=== PATIENT | male | born 1940 | race Caucasian/White ===

== ENCOUNTER 2025-07-03 07:58 | Outpatient (OUT) | payer MEDICARE, OTHER, SELFPAY ==
--- OUTSIDE RECORDS SUMMARY | 2025-07-03 08:05 | XMS_ITS | Encounter Summary ---
Author Organization [facility] Address [address] [place] [address] Phone Care Team Providers Care Talent Sourcing Specialist Name Role Phone Nirmal Johansen MD Primary Care Provider [phone] Reason for Visit * ReasonOnset FkacTluccpvfzqg31/16/2025 Encounter Details DateTypeDepartmentCare Team (Latest Contact Info)Kygcjupschf78/16/2025Telephone [address] [place] [address] Shasta Stone LPN poc Social History Tobacco UseTypesPacks/DayYears UsedDateSmoking Tobacco: FormerCigarettes Smokeless Tobacco: NeverAlcohol UseStandard Drinks/ElrnEeeeviieRrc74 (1 standard drink = 0.6 oz pure alcohol)Sex and Gender InformationValueDate RecordedSex Assigned at CaulePuzv80/14/2023 2:27 PM ESTLegal DnlYgfx23/26/2022 5:06 AM EST Gender KuselkkyDsmv21/14/2023 2:27 PM ESTSexual OrientationNot on filedocumented as of this encounter Miscellaneous Notes * Telephone Encounter - Shasta Stone LPN - 06/28/2025 8:41 AM EDT Tamara from Dr. Oliver's office updated. Note faxed * Telephone Encounter - Shasta Stone LPN - 06/27/2025 1:21 PM EDT Tamara from Dr. Oliver's office called for POC. Patient is scheduled at [facility] under general 07/18/2026 for bladder tumor removal. Will need to stop asa one week prior. To Dr. Ana Khoury MD documented in this encounter Plan of Treatment DateTypeDepartmentCare Team (Latest Contact Info)Ooxrypasiad83/15/2026 10:[address] [address] [facility] [address] [place] [address] Ana Khoury MD [address] [facility] [address] [place] [address] documented as of this encounter Visit Diagnoses Not on filedocumented in this encounter Additional Health Concerns AssessmentNoted TimeA fall risk assessment has been completed for the patient 01/18/2025 10:20 AM EDTdocumented as of this encounter Care Teams Team MemberRelationshipSpecialtyStart DateEnd Date Nirmal Johansen MD [address] [place] [address] PCP - General09/12/19documented as of this encounter
--- OUTSIDE RECORDS SUMMARY | 2025-07-03 08:05 | XMS_ITS | Clinical Summary ---
Author Organization [facility] Address [address] [place] [address] Phone Care Team Providers Care Small Business Representative Name Role Phone Nirmal Johansen MD Primary Care Provider [phone] Allergies Active AllergyReactionsCriticalityNoted FeyfNnfdhxboIyuabKnkgxVkprez61/14/2023 Sulfa (Sulfonamide Antibiotics)LoxpOwv3407/25/20239788OlqguvuirqqfZfyhSwq63/13/2023 Medications MedicationSigDispense QuantityRefillsLast FilledStart DateEnd DateStatus amitriptyline (Elavil) 25 mg tablet Take 1 tablet (25 mg) by mouth once daily at bedtime.10/18/2021ctive aspirin 81 mg EC tablet Take 1 tablet (81 mg) by mouth once daily.Active carvedilol (Coreg) 25 mg tablet Take 1 tablet (25 mg) by mouth 2 times daily (morning and late afternoon). 10/18/2021ctive finasteride (Proscar) 5 mg tablet Take 1 tablet (5 mg) by mouth once daily.10/18/2021ctive rosuvastatin (Crestor) 10 mg tablet Take 1 tablet (10 mg) by mouth once daily.10/18/2021ctive tamsulosin (Flomax) 0.4 mg 24 hr capsule Take 1 capsule (0.4 mg) by mouth 2 times a day.10/18/2021ctive amLODIPine (Norvasc) 5 mg tablet Take 1 tablet (5 mg) by mouth once daily.Active Active Problems ProblemNoted DateDiagnosed DateAV node hvnpxcaioqb27/09/2025Former smoker 01/18/2025MI 30.0-30.9,adult03/06/2024oronary artery disease involving tonawanda coronary artery of tonawanda heart without angina /13/2023HLD (hyperlipidemia)07/25/20232867Frqkxxmxdvlu51/13/1749Brnmhpwbf22/13/2023 Resolved Problems ProblemNoted DateDiagnosed DateResolved DateChest pain Shortness of /bnormal EKG1Heart block AV second ufxdwd89/05/2025 Encounters DateTypeDepartmentCare KumyVxrzkjovyuv40/16/2025[place] [address] [place] [address] Brletic, Shasta B, CONTINUOUS MINING OPERATOR pocfrom Last 3 Months Immunizations ImmunizationAdministration DatesNext DueInfluenza, Seasonal, Quadrivalent, Sjnjtlryqb70/31/2023,08/05/2021Influenza, Oikozjwyhnh52/01/2020Influenza, trivalent, noyepmludz20/05/2024Moderna SARS-CoV-2 Fzmledzlgnq56/24/2021, 1Pneumococcal conjugate vaccine, 13-valent (PREVNAR 13)08/03/2016 Pneumococcal polysaccharide vaccine, 23-valent, age 2 years and older (PNEUMOVAX 23)07/09/2022 Family History Medical HistoryRelationNameCommentsThroat cancerBrotherLung cancerFatherHeart diseaseMotherRelationNameStatusCommentsBrotherFatherMother Social History Tobacco UseTypesPacks/DayYears UsedDateSmoking Tobacco: FormerCigarettes Smokeless Tobacco: NeverAlcohol UseStandard Drinks/FgduDhlndrggZbc72 (1 standard drink = 0.6 oz pure alcohol)Sex and Gender InformationValueDate RecordedSex Assigned at XjodaZskm00/14/2023 2:27 PM ESTLegal RkyOpiy54/26/2022 5:06 AM EST Gender VrnyvzuzXzod70/14/2023 2:27 PM ESTSexual OrientationNot on file Last Filed Vital Signs Vital SignReadingTime TakenCommentsBlood Bnbiaeyz715/6005/05/2025 10:20 AM EDT Oycqe8660/09/2025 10:20 AM EDTTemperature--Respiratory Rate--Oxygen Saturation-- Inhaled Oxygen Concentration--Qkaanr385 kg (222 lb)01/18/2025 10:20 AM EDTHeight 180.3 cm (5' 11 )01/18/2025 10:20 AM EDTBody Mass Index30.9601/18/2025 10:20 AM EDT Plan of Treatment DateTypeDepartmentCare Team (Latest Contact Info)Dpswgthtfli16/15/2026 10:40 AM EDTOffice Visit [facility] [address] [facility] [address] [place] [address] Ana Khoury MD [facility] [place] [address] Health MaintenanceDue DateLast DoneCommentsLipid Panel1938Medicare Annual Wellness Visit (AWV)1940DTaP/Tdap/Td Vaccines (1 - Tdap)02/12/1960Zoster Vaccines (1 of 2)02/12/1988RSV High Risk: (Elderly (60+) or Population) (1 - 1-dose 75+ series)2013Influenza Vaccine (#1)511/01/2024, 07/12/2023, 07/09/2022, Additional history existsCOVID-19 Vaccine ( season)512/02/2023, 08/07/2022, 07/08/2021, Additional history exists Pneumococcal OsbnbyxTwpxcqqyh81/28/2022, 08/03/2016HIB VaccinesAged OutNo longer eligible based on patient's age to complete this topicHPV VaccinesAged OutNo longer eligible based on patient's age to complete this topicHepatitis A VaccinesAged OutNo longer eligible based on patient's age to complete this topic Hepatitis B VaccinesAged OutNo longer eligible based on patient's age to complete this topicIPV VaccinesAged OutNo longer eligible based on patient's age to complete this topicMeningococcal VaccineAged OutNo longer eligible based on patient's age to complete this topicRotavirus VaccinesAged OutNo longer eligible based on patient's age to complete this topic Insurance * Guarantor: Benjamín Hayden TypeRelation to PatientDate of BirthS[facility] Billing AddressPersonal/WgtcjqHytw1940 [address] [place] [address] Care Teams Team MemberRelationshipSpecialtyStart DateEnd Date Nirmal Johansen MD [address] [place] [address] [facility]09/12/19
--- OUTSIDE RECORDS SUMMARY | 2025-07-03 08:05 | XMS_ITS | Clinical Summary ---
Author Organization [facility] Address [address] [place], [place] [address] Care Team Providers Care Credit Counselor Name Role Phone Nirmal Johansen Primary Care Provider [phone] Allergies Active AllergyReactionsCriticalityNoted DateCommentsLatex, Natural RubberUnknown 04/01/2015Sulfa (Sulfonamide Antibiotics)02/11/20048943Xxzbsqlnvohu60/01/2004 Medications MedicationSigDispense QuantityRefillsLast FilledStart DateEnd DateStatus finasteride (PROSCAR) 5 mg tablet Take 5 mg by mouth once daily.12/16/2014ctive aspirin, enteric coated (ASPIRIN, ENTERIC COATED) 81 mg EC tablet Take 81 mg by mouth once daily.Active tamsulosin ER (FLOMAX) 0.4 mg cp24 Take 0.4 mg by mouth twice daily.Active CRESTOR 10 mg tablet 06/18/2015ctive carvedilol (COREG) 25 mg tablet twice daily with meals.06/17/2015ctive oxybutynin ER (DITROPAN XL) 15 mg 24 hr Extended Rel Tab once daily.07/08/2016Active Active Problems ProblemNoted DateDiagnosed DateMonoclonal fyiehogbxb84/11/2015Fever, unspecified fever cause05/16/2015 Overview (06/12/2015): ICD-10 Go-Live Malignant neoplasm of owitoiju38/21/2015Other and unspecified hyperlipidemia 2004Essential hypertension, epmssu8502/11/2004Hypertrophy of prostate with urinary obstruction and other lower urinary tract symptoms (LUTS)2004 ABDOMINAL PAIN UNSPEC SITE: left flank2004Orchalgia - left2004 Immunizations ImmunizationAdministration DatesNext Dueinfluenza (HD-IIV3) vaccine, age 65+ yr, high dose, trivalent, PF (FLUZONE HIGH-DOSE)07/29/2015 Family History Medical HistoryRelationCommentsCancerFatherLungRelationStatusCommentsBrother AliveDaughterAliveFatherDeceased (Age 45)MotherDeceased (Age 98)SonAlive Social History Tobacco UseTypesPacks/DayYears UsedDateSmoking Tobacco: FormerCigarsSmokeless Tobacco: Never Comments:Quit cigarettes 18 yrs ago Alcohol UseStandard Drinks/WeekCommentsYes0 (1 standard drink = 0.6 oz pure alcohol)Sex and Gender InformationValueDate RecordedSex Assigned at BirthNot on fileLegal TnzMirx03/02/2012 10:03 AM ESTGender IdentityNot on fileSexual OrientationNot on fileOccupationIndustryJob Start DateJob End DateRetired managerNot on fileNot on fileNot on file Last Filed Vital Signs Vital SignReadingTime TakenCommentsBlood Liijwjin037/7005 8:10 AM EDT Ewstq3722 1:59 PM LXZUdgmerxxxsh11.9 ??C (98.4 ??F)01/13/2016 1:59 PM EDTRespiratory Wwja342101/13/2016 1:59 PM EDTOxygen Saturation--Inhaled Oxygen Concentration--Ctzvsv264 kg (238 lb)01/18/2017 8:10 AM XHVExitzl348.1 cm (5' 10.51 )01/13/2016 1:59 PM EDTBody Mass Index33.66001/13/2016 1:59 PM EDT Plan of Treatment Health MaintenanceDue DateLast DoneCommentsAnxiety Khlbfrqgp81/02/1956Depression Fvzuqbwmo14/02/1956DTaP,Tdap,Td Vaccine (1 - Tdap)1957Pneumococcal Vaccine: 50+ (1 of 1 - PCV)02/12/1988Shingrix Vaccine (1 of 2)02/12/1988RSV Vaccine (1 - 1-dose 75+ series)2013Diabetes Pvayjwpit64, 2004Advance Directive Ajfuouwydq81/01/2025Covid-19 Vaccine ( season)2025Influenza Vaccine (#1) Procedures Procedure NamePriorityDate/TimeAssociated DiagnosisCommentsBASIC METABOLIC PANEL Ejbjwml9304/03/2015 4:05 PM EDT Malignant neoplasm of prostate (HCC) from Last 3 Months or Most Recently Relevant to Health Maintenance Results * (ABNORMAL) BASIC METABOLIC PNL (04/03/2015 4:05 PM EDT)ComponentValueRef Range Test MethodAnalysis TimePerformed AtPathologist XznvcbrarPjlpded691(H)65 - 100 mg/dL04/04/2015 3:09 PM [facility] IXUUYARRJANJW8792 - 25 mg/dL 04/04/2015 3:09 PM [facility] LABORATORYCreatinine1.060.70 - 1.40 mg/dL04/04/2015 3:09 PM [facility] UNIGOIEOJRVhnxip021998 - 146 mmol/L04/04/2015 3:09 PM [facility] LABORATORYPotassium4.0 3.5 - 5.0 mmol/L04/04/2015 3:09 PM [facility] LABORATORYChloride 13133 - 110 mmol/L04/04/2015 3:09 PM [facility] FXMVDPLYGCKP962 23 - 32 mmol/L04/04/2015 3:09 PM [facility] LABORATORYAnion Gap 120 - 15 mmol/L04/04/2015 3:09 PM [facility] LABORATORYCalcium 8.78.5 - 10.5 mg/dL04/04/2015 3:09 PM [facility] LABORATORYeGFR- >6007 3:09 PM [facility] LABORATORYeGFR- All Other Races>60.04/04/2015 3:09 PM [facility] Comment: eGFR (Estimated GFR) Units of measure: mL/min/1.73 meters squared eGFR is derived from the reexpressed MDRD Study equation using the following parameters: serum creatinine, age, gender and race. The creatinine assay has been calibrated to be traceable to IDMS. An eGFR <60 mL/min/1.73m2 for >3 months is consistent with chronic kidney disease. Refer to KDOQI guidelines for clinical interpretation. In patients with unstable renal function, e.g. those with acute kidney injury, the eGFR may not accurately reflect actual GFR. Specimen (Source)Anatomical Location / LateralityCollection Method / Volume Collection TimeReceived TimeBlood specimen (specimen)BLOOD SPECIMEN / Unknown 04/03/2015 4:05 PM EDT04/04/2015 7:12 AM EDT Narrative Authorizing ProviderResult TypeResult StatusG Cornell Garg MDLABORATORYFinal ResultPerforming OrganizationAddressCity/State/ZIP CodePhone Number [facility] [address] [place] [address] from Last 3 Months or Most Recently Relevant to Health Maintenance Insurance Care Teams Team MemberRelationshipSpecialtyStart DateEnd Nirmal Johansen NPI: [id number] [place] [address] [phone] [facility]CP [facility]04/29/15
--- OUTSIDE RECORDS SUMMARY | 2025-07-03 08:05 | XMS_ITS | Clinical Summary ---
Author Organization [facility] Address [id number] [address] [place] [address] Care Team Providers Care Research Program Assistant Name Role Phone Nirmal Johansen MD Primary Care Provider [phone] Allergies Active AllergyReactionsCriticalityNoted DateCommentsLatex, Natural RubberRashLow 04/01/2015Sulfa (Sulfonamide Antibiotics)07/04/20173812IzrlrqiqrfnyXymzLgg51/23/2017 Medications MedicationSigDispense QuantityRefillsLast FilledStart DateEnd DateStatus amitriptyline (ELAVIL) 25 mg tablet Take 25 mg by mouth 2 (two) times a day. 06/17/2017Active carvedilol (COREG) 25 mg tablet Take by mouth 2 (two) times a day.06/17/2017Active finasteride (PROSCAR) 5 mg tablet Take by mouth daily.06/17/2017Active rosuvastatin (CRESTOR) 10 mg tablet Take by mouth daily.06/17/2017Active tamsulosin (FLOMAX) 0.4 mg capsule,extended release 24hr Take 0.4 mg by mouth 2 (two) times a day. 06/17/2017Active aspirin 81 mg Indications:Atherosclerosis of ambler coronary artery of ambler heart without angina pectorisTake 1 tablet (81 mg total) by mouth daily. 30 tablet 11Active gabapentin (NEURONTIN) 300 mg capsule Take 300 mg by mouth 3 (three) times a day.Active traMADoL (ULTRAM) 50 mg tablet Take 50 mg by mouth every 6 (six) hours as needed for pain.Active Active Problems ProblemNoted DateDiagnosed DateNon-ST elevation UT (NSTEMI) ([facility]) 200607/15/2020Mitral /24/2017HyperlipidemiaAtherosclerotic heart disease of ambler coronary artery without angina pectorisPresence of coronary angioplasty implant and graftObesitySOB (shortness of breath) Family History Medical HistoryRelationNameCommentsCancerFatherHeart diseaseMotherRelationName StatusCommentsFatherDeceasedMotherDeceased Social History Tobacco UseTypesPacks/DayYears UsedDateSmoking Tobacco: FormerSmokeless Tobacco: Never Tobacco Cessation:Counseling Given: No Alcohol UseStandard Drinks/WeekCommentsYes0 (1 standard drink = 0.6 oz pure alcohol)pt states couple drinks per dayChildcareAnswerDate RecordedChildcare Oulxdmv9902/19/2019EmploymentAnswerDate KtaozsnyTvatwooxzuQbpmces74/10/2019Purpose - LifeAnswerDate RecordedPurpose and direction in mvbeZukheyg44/10/2021ex and Gender InformationValueDate RecordedSex Assigned at ZnfrvUona49/24/2024 6:12 PM EDTLegal CouFrcg0004/15/2015 1:59 PM EDTGender WhzvabazCmoy83/24/2024 6:12 PM EDT Sexual SahfrsxaorxBfyfhtif55/24/2024 6:12 PM EDT Last Filed Vital Signs Vital SignReadingTime TakenCommentsBlood Sszhoess359/80109/14/2019 10:07 AM EST Hioqg930607/15/2020 10:07 AM AYIObpzvrdhepq43.5 ??C (97.7 ??F)01/23/2020 10:30 AM EDTRespiratory Oqly0588 11:18 AM EDTOxygen Prpvflluil00%01/23/2020 11:20 AM EDTInhaled Oxygen Concentration--Jxrgjb347 kg (227 lb)07/15/2020 10:07 AM EST Yakdej953.3 cm (5' 11 )07/15/2020 10:07 AM ESTBody Mass Index31.6607/15/2020 10:07 AM EST Plan of Treatment Health MaintenanceDue DateLast DoneCommentsDepression Eftxqxrbg37/02/1950Tobacco Kuufsagxs24/02/1950DTaP,Tdap and Td Vaccines (1 - Tdap)1957Zoster (Shingles) Vaccine (1 of 2)02/12/1988Fall Risk Triixeiyw33/02/2003Influenza Ewldfgr74/01/756633, 08/15/2018, 06/19/2018, Additional history exists Medical Devices Not on file Insurance Care Teams Team MemberRelationshipSpecialtyStart DateEnd Date Nirmal Johansen MD [address] [place] [address] [facility]06/06/17
--- OUTSIDE RECORDS SUMMARY | 2025-07-03 08:05 | XMS_ITS ---
Author Organization [facility] Address [address] [place], [place] [address] Care Team Providers Care Retail Sales Director Name Role Phone Nirmal Johansen Primary Care Provider [phone] Active Problems ProblemNoted DateDiagnosed DateMonoclonal lsessrynfz66/11/2015Fever, unspecified fever cause05/16/2015 Overview (06/12/2015): ICD-10 Go-Live Malignant neoplasm of drhzojbw55/21/2015Other and unspecified hyperlipidemia 2004Essential hypertension, xjxbjc4602/11/2004Hypertrophy of prostate with urinary obstruction and other lower urinary tract symptoms (LUTS)2004 ABDOMINAL PAIN UNSPEC SITE: left flank2004Orchalgia - left2004 Current Treatment and Therapy Plans No current plan information found. Past Treatment and Therapy Plans
--- OUTSIDE RECORDS SUMMARY | 2025-07-03 08:05 | XMS_ITS | Clinical Summary ---
Author Organization [facility] Address [address] [place] [address] Care Team Providers Care Gauge Maker Name Role Phone Unavailable Primary Care Provider Unavailabl e Social History Tobacco UseTypesPacks/DayYears UsedDateSmoking Tobacco: Never AssessedSex and Gender InformationValueDate RecordedSex Assigned at BirthNot on fileLegal Sex Male11/24/2022 7:02 PM EDTGender IdentityNot on fileSexual OrientationNot on file Last Filed Vital Signs Vital SignReadingTime TakenCommentsBlood Xfwjoskr526/8212 12:00 PM EST Pulse--Temperature--Respiratory Rate--Oxygen Saturation--Inhaled Oxygen Concentration--Chluzp52.8 kg (220 lb)01/11/2020 12:00 PM BZADpkbig431.8 cm (5' 10 )01/11/2020 12:00 PM EDTBody Mass Index31.57001/11/2020 12:00 PM EDT Plan of Treatment Not on file Insurance
--- NOTE | 2025-07-03 08:07 | XR_ITS ---
The [address] [address] Patient Name: CECILY CANDELARIO MRN: [id number] date: 1940 Sex: M Assigned Patient Location: [facility] Current Patient Location: [facility] Accession/Order Number: [id number] Exam Date: 07/03/2025 08:42 Report Date: 07/03/2025 10:22 At the request of: SYDNEE LEMA MD Procedure: XR chest 2V PA AND LATERAL CHEST: CLINICAL HISTORY: Preop clearance. History of tobacco use. COMPARISON: None A left-sided pacemaker is visualized. Minor scarring or atelectasis is seen. There is no focal parenchymal consolidation, effusion or pneumothorax. The cardiac, hilar and mediastinal silhouettes are within normal limits. A distal right paratracheal calcified granuloma is seen. There is no vascular congestion. The visualized bony thorax is intact. There is endplate spurring at the spine. XR/XR chest 2V IMPRESSION: NO ACUTE CARDIOPULMONARY ABNORMALITY. Impression dictated by: Sisi Orlando M.D. 07/03/2025 10:22 AM Dictation Location: [place] [address] Electronically authenticated by: [id number] Y Date: 07/03/2025 10:22
[2025-07-03 08:58] LABS: Anion Gap 12.3; Blood Urea Nitrogen 23.0 mg/dL (7.0-18.0); Calcium 9.2 mg/dL (8.5-10.1); Carbon Dioxide 26.7 mmol/L (21.0-32.0); Chloride 107 mmol/L (98-107); Estimated GFR (African America >60 (>=60 mL/min/1.73m^2); Estimated GFR (Non-African Ame >60 (>=60 mL/min/1.73m^2); Glucose 108 mg/dL (74-106); Potassium 4.0 mmol/L (3.5-5.1); Sodium 142 mmol/L (136-145)
--- NOTE | 2025-07-03 09:04 | PM.PRESUREVA ---
History of Present Illness History of Present Illness Chief complaint: bladder tumors Narrative: For presurgical testing. Please see HPI from Dr. Gloria dated June 26, 2025. Review of Systems ROS Narrative Please see ROS from Dr. Gloria dated June 26, 2025. PFSH [facility] Medical History (Updated 07/03/25 @ 08:54 by Arelis Cochran NP) AV node dysfunction ?I45.89 - Other specified conduction disorders (ICD-10) Cardiac pacemaker ?Z95.0 - Presence of cardiac pacemaker (ICD-10) Bladder tumor ?D49.4 - Neoplasm of unspecified behavior of bladder (ICD-10) Knee pain ?M25.569 - Pain in unspecified knee (ICD-10) Arthritis ?M19.90 - Unspecified osteoarthritis, unspecified site (ICD-10) Prostate cancer ?C61 - Malignant neoplasm of prostate (ICD-10) Bladder cancer ?C67.9 - Malignant neoplasm of bladder, unspecified (ICD-10) Skin cancer ?C44.90 - Unspecified malignant neoplasm of skin, unspecified (ICD-10) Activity intolerance ?R68.89 - Other general symptoms and signs (ICD-10) Myocardial infarction ?I21.9 - Acute myocardial infarction, unspecified (ICD-10) Coronary artery disease ?I25.10 - Atherosclerotic heart disease of ewiiaapaayp coronary artery without angina pectoris (ICD-10) High cholesterol ?E78.00 - Pure hypercholesterolemia, unspecified (ICD-10) Hypertension ?I10 - Essential (primary) hypertension (ICD-10) Surgical History (Updated 07/03/25 @ 08:54 by Arelis Cochran NP) History of appendectomy ?Z90.49 - Acquired absence of other specified parts of digestive tract (ICD-10) History of surgical removal of skin lesion ?Z98.890 - Other specified postprocedural states (ICD-10) ?Z87.2 - Personal history of diseases of the skin and subcutaneous tissue (ICD-10) H/O arthroscopic knee surgery ?Z98.890 - Other specified postprocedural states (ICD-10) H/O cataract extraction ?Z98.49 - Cataract extraction status, unspecified eye (ICD-10) H/O colonoscopy ?Z98.890 - Other specified postprocedural states (ICD-10) History of cardiac catheterization ?Z98.890 - Other specified postprocedural states (ICD-10) S/P arterial stent ?Z95.9 - Presence of cardiac and vascular implant and graft, unspecified (ICD-10) H/O transurethral resection of bladder tumor (TURBT) (~2011) ?Z98.890 - Other specified postprocedural states (ICD-10) ?Z86.03 - Personal history of neoplasm of uncertain behavior (ICD-10) H/O prostate biopsy (~2014) ?Z98.890 - Other specified postprocedural states (ICD-10) H/O cystoscopy ?Z98.890 - Other specified postprocedural states (ICD-10) Family History (Updated 07/03/25 @ 08:28 by Arelis Cochran NP) Other Family history of heart disease Family history of lung cancer Social History (Updated 07/03/25 @ 08:22 by Arelis Cochran NP) Within the past year, how often did you have a drink containing alcohol: 4 or more times a week Within the past year, how many standard drinks containing alcohol did you have on a typical day: 1 or 2 Total score: 0 Score interpretation: A score less than 4 is consistent with normal alcohol consumption. Smoking status: Former smoker Non-prescribed substance use: denies use Highest level of school completed/degree received: high school graduate Meds Home Medications and Allergies Home Medications ?Medication ?Instructions ?Recorded ?Confirmed ?Type amitriptyline 25 mg tablet 25 mg PO DAILY 07/03/25 07/03/25 History amlodipine 5 mg tablet 5 mg PO DAILY 07/03/25 07/03/25 History aspirin 81 mg tablet,delayed 81 mg PO DAILY 07/03/25 07/03/25 History release (Adult Aspirin Regimen) carvedilol 25 mg tablet 25 mg PO Q12H 07/03/25 07/03/25 History finasteride 5 mg tablet 5 mg PO DAILY 07/03/25 07/03/25 History rosuvastatin 10 mg tablet 10 mg PO DAILY 07/03/25 07/03/25 History tamsulosin 0.4 mg capsule 0.4 mg PO BID 07/03/25 07/03/25 History Allergies Allergy/AdvReac Type Severity Reaction Status Date / Time latex Allergy Rash Verified 07/03/25 08:19 Sulfa (Sulfonamide Allergy Rash Verified 07/03/25 08:19 Antibiotics) tetracycline Allergy Rash Verified 07/03/25 08:19 Exam Narrative Exam Narrative: Constitutional: Awake, alert, comfortable, well-appearing, nontoxic, interactive, vital signs as charted Head: Normocephalic, atraumatic Neck: Supple, normal appearance, normal range of motion, no meningeal signs, no lymphadenopathy Respiratory: No respiratory distress, breath sounds clear Cardiovascular: Regular rate and rhythm, strong and regular heart tones Abdomen: Nontender, normal bowel sounds, soft, no CVA tenderness Musculoskeletal: Normal gait, no swelling or edema Skin: No rashes or induration, no lesions, only visible skin inspected Neuro: No neurological deficits, normal sensation Psychiatric: Oriented ?3, normal affect Assessment and Plan Assessment and Plan (1) Bladder tumor: (2) Bladder cancer: Plan Cystoscopy, right ureteroscopy, TURBT, possible right stent placement scheduled with Dr. Gloria July 18, 2025.
[2025-07-03 09:11] LABS: Hematocrit 40.4 % (42.0-54.0); Hemoglobin 13.6 g/dL (14.0-18.0); Immature Granulocytes Abs Auto 0.01 10^3/uL (0.00-0.03); Immature Granulocytes Pct Auto 0.2 % (0.0-0.5); Lymphocytes Absolute Auto 1.5 10^3/uL (1.2-3.8); Mean Corpuscular HGB Conc 33.7 g/dL (29.9-35.2); Mean Corpuscular Hemoglobin 30.6 pg (25.9-34.0); Mean Corpuscular Volume 90.8 fL (80.0-94.0); Platelet Count 184 10^3/uL (150-450); Red Blood Count 4.45 10^6/uL (4.70-6.10); White Blood Count 5.4 10^3/uL (4.0-11.0)
[2025-07-03 09:28] LABS: INR 1.08; Partial Thromboplastin Time 27.1 sec (22.3-36.2); Prothrombin Time 11.4 sec (9.0-11.6)
== END 2025-07-03 07:59 | disposition home or self-care (01) ==
LOC: PST 08:02
PROVIDERS: PCP Family Medicine; Visit Provider Urology
DX: Z01.810 Encounter for preprocedural cardiovascular examination (principal); Z01.812 Encounter for preprocedural laboratory examination; Z01.818 Encounter for other preprocedural examination; D49.4 Neoplasm of unspecified behavior of bladder; Z85.46 Personal history of malignant neoplasm of prostate
CPT/HCPCS: 71046; 80048; 85025; 85610; 85730; G0463

== ENCOUNTER 2025-07-18 09:31 | Day surgery (SDC) | payer MEDICARE, OTHER, SELFPAY ==
[2025-07-03 08:36] VITALS: BP 154/88; PULSE 60; TEMP 36.4; O2SAT 95; BMI 31.1
[2025-07-18] VITALS (13 sets, daily range): BP systolic 125–183; BP diastolic 51–94; PULSE 60–70; TEMP 36.6–36.9; O2SAT 91–95; BMI 30.8
--- OUTSIDE RECORDS SUMMARY | 2025-07-18 09:35 | XMS_ITS | Clinical Summary ---
Author Organization [facility] Healthcare Address [address] [place] [address] Care Team Providers Care Tinning Equipment Tender Name Role Phone Unavailable Primary Care Provider Unavailabl e Social History Tobacco UseTypesPacks/DayYears UsedDateSmoking Tobacco: Never AssessedSex and Gender InformationValueDate RecordedSex Assigned at BirthNot on fileLegal Sex Male11/24/2022 7:02 PM EDTGender IdentityNot on fileSexual OrientationNot on file Last Filed Vital Signs Vital SignReadingTime TakenCommentsBlood Pdwncemi450/8212 12:00 PM EST Pulse--Temperature--Respiratory Rate--Oxygen Saturation--Inhaled Oxygen Concentration--Opgyml68.8 kg (220 lb)01/11/2020 12:00 PM NTJMfiufg047.8 cm (5' 10 )01/11/2020 12:00 PM EDTBody Mass Index31.57001/11/2020 12:00 PM EDT Plan of Treatment Not on file Insurance
--- OUTSIDE RECORDS SUMMARY | 2025-07-18 09:35 | XMS_ITS | Clinical Summary ---
Author Organization [facility] Address [address] [place] [address] Phone Care Team Providers Care Fabric And Textile Factory Worker Name Role Phone Nirmal Johansen MD Primary Care Provider [phone] Allergies Active AllergyReactionsCriticalityNoted FexbEhqiuxnxIlnnsOxaexKmnfam11/14/2023 Sulfa (Sulfonamide Antibiotics)BnegZsd3807/25/20237866KzguzthdhyztQfvtNuq63/13/2023 Medications MedicationSigDispense QuantityRefillsLast FilledStart DateEnd DateStatus amitriptyline [...] daily.Active Active Problems ProblemNoted DateDiagnosed DateAV node kkrozhbnyri21/09/2025Former smoker 01/18/2025MI 30.0-30.9,adult03/06/2024oronary artery disease involving [place] coronary artery of [place] heart without angina ocsyrbtt99/13/2023HLD (hyperlipidemia)07/25/20236528Uholuupdgkjt75/13/6043Gkylrvrmd86/13/2023 Resolved Problems ProblemNoted DateDiagnosed DateResolved DateChest pain Shortness of omnega36/bnormal EKG1Heart block AV second /05/2025 Encounters DateTypeDepartmentCare HdixDbmokikuzqa95/16/2025[place] [address] [place] [address] Brletic, Shasta B, OIL SPRAYER pocfrom Last 3 Months Immunizations ImmunizationAdministration DatesNext DueInfluenza, Seasonal, Quadrivalent, Tdomjxwvei53/31/2023,08/05/2021Influenza, Sfqjoxcygkg24/01/2020Influenza, trivalent, deytjuqkpo10/05/2024Moderna SARS-CoV-2 Dtjtjnmbccy49/24/2021, 1Pneumococcal conjugate vaccine, 13-valent (PREVNAR 13)08/03/2016 Pneumococcal polysaccharide vaccine, 23-valent, age 2 years and older (PNEUMOVAX 23)07/09/2022 Family History Medical HistoryRelationNameCommentsThroat cancerBrotherLung cancerFatherHeart diseaseMotherRelationNameStatusCommentsBrotherFatherMother Social History Tobacco UseTypesPacks/DayYears UsedDateSmoking Tobacco: FormerCigarettes Smokeless Tobacco: NeverAlcohol UseStandard Drinks/HvwyAxggnglaPyc23 (1 standard drink = 0.6 oz pure alcohol)Sex and Gender InformationValueDate RecordedSex Assigned at QqwvdAttx93/14/2023 2:27 PM ESTLegal PohHuwj53/26/2022 5:06 AM EST Gender SkqlelduLnbn67/14/2023 2:27 PM ESTSexual OrientationNot on file Last Filed Vital Signs Vital SignReadingTime TakenCommentsBlood Xxpixled731/6005/05/2025 10:20 AM EDT Grvsv8190/09/2025 10:20 AM EDTTemperature--Respiratory Rate--Oxygen Saturation-- Inhaled Oxygen Concentration--Crnnpv480 kg (222 lb)01/18/2025 10:20 AM EDTHeight 180.3 cm (5' 11 )01/18/2025 10:20 AM EDTBody Mass Index30.9601/18/2025 10:20 AM EDT Plan of Treatment DateTypeDepartmentCare Team (Latest Contact Info)Jokzvqqogoe08/15/2026 10:40 AM EDTOffice Visit [facility] [address] [facility] [place] [address] Ana Khoury MD [address] [place] [address] Health MaintenanceDue DateLast DoneCommentsLipid Panel1938Medicare Annual Wellness Visit (AWV)1940DTaP/Tdap/Td Vaccines (1 - Tdap)02/12/1960Zoster Vaccines (1 of 2)02/12/1988RSV High Risk: (Elderly (60+) or Population) (1 - 1-dose 75+ series)2013Influenza Vaccine (#1)511/01/2024, 07/12/2023, 07/09/2022, Additional history existsCOVID-19 Vaccine ( season)512/02/2023, 08/07/2022, 07/08/2021, Additional history exists Pneumococcal AvceytpAvxnmcgas19/28/2022, 08/03/2016HIB VaccinesAged OutNo longer eligible based on [...] Guarantor: Benjamín Hayden TypeRelation to PatientDate of BirthMay[facility] Billing AddressPersonal/PfvhibDxfx1940 [address] [place] [address] Care Teams Team MemberRelationshipSpecialtyStart DateEnd Date Nirmal Johansen MD [address] [place] [address] [facility]09/12/19
--- OUTSIDE RECORDS SUMMARY | 2025-07-18 09:35 | XMS_ITS ---
Author Organization [facility] Address [address] [place], [place] [address] Care Team Providers Care Motor Equipment Commanding Officer Name Role Phone Nirmal Johansen Primary Care Provider [phone] Active Problems ProblemNoted DateDiagnosed DateMonoclonal hilmsrgbmw56/11/2015Fever, unspecified fever cause05/16/2015 Overview (06/12/2015): ICD-10 Go-Live Malignant neoplasm of kdugjrms22/21/2015Other and unspecified hyperlipidemia 2004Essential hypertension, qhqjpm1602/11/2004Hypertrophy of prostate with urinary obstruction and other lower urinary tract symptoms (LUTS)2004 ABDOMINAL PAIN UNSPEC SITE: left flank2004Orchalgia - left2004 Current Treatment and Therapy Plans No current plan information found. Past Treatment and Therapy Plans
--- OUTSIDE RECORDS SUMMARY | 2025-07-18 09:35 | XMS_ITS | Clinical Summary ---
Author Organization [employer] [facility] Address [id number] [address] [place] [address] Care Team Providers Care Pressure Vessel Inspector Name Role Phone Nirmal Johansen MD Primary Care Provider [phone] Allergies Active AllergyReactionsCriticalityNoted DateCommentsLatex, Natural RubberRashLow 04/01/2015Sulfa (Sulfonamide Antibiotics)07/04/20177490EfndsolbfiocNndzPhi10/23/2017 Medications MedicationSigDispense QuantityRefillsLast FilledStart DateEnd DateStatus amitriptyline [...] day. 06/17/2017Active aspirin 81 mg Indications:Atherosclerosis of [place] coronary artery of [place] heart without angina pectorisTake 1 tablet (81 mg total) by mouth daily. 30 tablet 11Active gabapentin (NEURONTIN) 300 mg capsule Take 300 mg by mouth 3 (three) times a day.Active traMADoL (ULTRAM) 50 mg tablet Take 50 mg by mouth every 6 (six) hours as needed for pain.Active Active Problems ProblemNoted DateDiagnosed DateNon-ST elevation FL (NSTEMI) ([facility]) 200607/15/2020Mitral /24/2017HyperlipidemiaAtherosclerotic heart disease of [place] coronary artery without angina pectorisPresence of coronary angioplasty implant and graftObesitySOB (shortness of breath) Family History Medical HistoryRelationNameCommentsCancerFatherHeart diseaseMotherRelationName StatusCommentsFatherDeceasedMotherDeceased Social History Tobacco UseTypesPacks/DayYears UsedDateSmoking Tobacco: FormerSmokeless Tobacco: Never Tobacco Cessation:Counseling Given: No Alcohol UseStandard Drinks/WeekCommentsYes0 (1 standard drink = 0.6 oz pure alcohol)pt states couple drinks per dayChildcareAnswerDate RecordedChildcare Rjpzqdd5702/19/2019EmploymentAnswerDate CyibusnqXuwrbnmmytLxgtscm66/10/2019Purpose - LifeAnswerDate RecordedPurpose and direction in qtcbPtpjfgb03/10/2021ex and Gender InformationValueDate RecordedSex Assigned at LpangZpgy34/24/2024 6:12 PM EDTLegal ClsXqwh6104/15/2015 1:59 PM EDTGender GwlpqyuoIwyj20/24/2024 6:12 PM EDT Sexual NydjajjljbuOpmaiaio12/24/2024 6:12 PM EDT Last Filed Vital Signs Vital SignReadingTime TakenCommentsBlood Vlhqspbi213/80109/14/2019 10:07 AM EST Mbidn687307/15/2020 10:07 AM OREEwgdzlztpaj57.5 ??C (97.7 ??F)01/23/2020 10:30 AM EDTRespiratory Xoqt0904 11:18 AM EDTOxygen Tpjcvteqhh13%01/23/2020 11:20 AM EDTInhaled Oxygen Concentration--Xfpkgq818 kg (227 lb)07/15/2020 10:07 AM EST Unytty911.3 cm (5' 11 )07/15/2020 10:07 AM ESTBody Mass Index31.6607/15/2020 10:07 AM EST Plan of Treatment Health MaintenanceDue DateLast DoneCommentsDepression Yxcqufusn32/02/1950Tobacco Sttuyqhgm83/02/1950DTaP,Tdap and Td Vaccines (1 - Tdap)1957Zoster (Shingles) Vaccine (1 of 2)02/12/1988Fall Risk Ehbzrmdva39/02/2003RSV ( or age 60+ yrs) (1 - 1-dose 75+ series)2013Influenza Qgslpvp4805/13/2025 06/21/2019, 08/15/2018, 06/19/2018, Additional history exists Medical Devices Not on file Insurance Care Teams Team MemberRelationshipSpecialtyStart DateEnd Date Nirmal Johansen MD [address] [place] [address] [facility]06/06/17
--- OUTSIDE RECORDS SUMMARY | 2025-07-18 09:35 | XMS_ITS | Clinical Summary ---
Author Organization [facility] Address [address] [place], [place] [address] Care Team Providers Care Diesel Engine Tester Name Role Phone Nirmal Johansen Primary Care Provider [phone] Allergies Active AllergyReactionsCriticalityNoted DateCommentsLatex, Natural RubberUnknown 04/01/2015Sulfa (Sulfonamide Antibiotics)02/11/20049256Bdkluilizwti54/01/2004 Medications MedicationSigDispense QuantityRefillsLast FilledStart DateEnd DateStatus finasteride [...] once daily.07/08/2016Active Active Problems ProblemNoted DateDiagnosed DateMonoclonal fmkzoiunov28/11/2015Fever, unspecified fever cause05/16/2015 Overview (06/12/2015): ICD-10 Go-Live Malignant neoplasm of pvwxktit20/21/2015Other and unspecified hyperlipidemia 2004Essential hypertension, plqtly1902/11/2004Hypertrophy of prostate with urinary obstruction and other [...] InformationValueDate RecordedSex Assigned at BirthNot on fileLegal PidYdff54/02/2012 10:03 AM ESTGender IdentityNot on fileSexual OrientationNot on fileOccupationIndustryJob Start DateJob End DateRetired managerNot on fileNot on fileNot on file Last Filed Vital Signs Vital SignReadingTime TakenCommentsBlood Hfaideql452/7005 8:10 AM EDT Hkgqd9979 1:59 PM MEBXordairblij39.9 ??C (98.4 ??F)01/13/2016 1:59 PM EDTRespiratory Tpbd431801/13/2016 1:59 PM EDTOxygen Saturation--Inhaled Oxygen Concentration--Spvoga858 kg (238 lb)01/18/2017 8:10 AM WIQGscfti817.1 cm (5' 10.51 )01/13/2016 1:59 PM EDTBody Mass Index33.66001/13/2016 1:59 PM EDT Plan of Treatment Health MaintenanceDue DateLast DoneCommentsAnxiety Owfdyvwpy28/02/1956Depression Ekeogjvzz99/02/1956DTaP,Tdap,Td Vaccine (1 - Tdap)1957Pneumococcal Vaccine: 50+ (1 of 1 - PCV)02/12/1988Shingrix Vaccine (1 of 2)02/12/1988RSV Vaccine (1 - 1-dose 75+ series)2013Diabetes Pmjwhildk21, 2004Advance Directive Nrealeghvc00/01/2025Covid-19 Vaccine ( season)2025Influenza Vaccine (#1) Procedures Procedure NamePriorityDate/TimeAssociated DiagnosisCommentsBASIC METABOLIC PANEL Dxqdkym9404/03/2015 4:05 PM EDT Malignant neoplasm of prostate (HCC) from Last 3 Months or Most Recently Relevant to Health Maintenance Results * (ABNORMAL) BASIC METABOLIC PNL (04/03/2015 4:05 PM EDT)ComponentValueRef Range Test MethodAnalysis TimePerformed AtPathologist EbeivmdgqLwglvwy427(H)65 - 100 mg/dL04/04/2015 3:09 PM [facility] WIKJSQEBTGOFP1689 - 25 mg/dL 04/04/2015 3:09 PM [facility] LABORATORYCreatinine1.060.70 - 1.40 mg/dL04/04/2015 3:09 PM [facility] SSNSVTWBUHIjpwjj591533 - 146 mmol/L04/04/2015 3:09 PM [facility] LABORATORYPotassium4.0 3.5 - 5.0 mmol/L04/04/2015 3:09 PM [facility] LABORATORYChloride 04797 - 110 mmol/L04/04/2015 3:09 PM [facility] CBGSONKIPFFV964 23 - 32 mmol/L04/04/2015 3:09 PM [facility] LABORATORYAnion Gap 120 - 15 mmol/L04/04/2015 3:09 PM [facility] LABORATORYCalcium 8.78.5 - 10.5 mg/dL04/04/2015 3:09 PM [facility] LABORATORYeGFR- >6007 3:09 PM [facility] MA[facility] LABORATORYeGFR- All Other Races>60.04/04/2015 3:09 PM [facility] Comment: eGFR (Estimated [...] Cornell Garg MDLABORATORYFinal ResultPerforming OrganizationAddressCity/State/ZIP CodePhone Number [facility] [address] [place] [address] from Last 3 Months or Most Recently Relevant to Health Maintenance Insurance Care Teams Team MemberRelationshipSpecialtyStart DateEnd Nirmal Johansen NPI: [id number] [place] [phone] [facility]/29/[facility]
[2025-07-18] MEDS: CEFAZOLIN SODIUM/DEXTROSE,ISO 1 GM/50 ML PREMIX IV (12:24)
--- NOTE | 2025-07-18 13:11 | PM.URSON ---
Urology Surgery Operative Note Operative Note Procedure Date: 07/18/25 Time Out Performed: yes Pre-op Diagnosis: Recurrent bladder tumors Post-op Diagnosis: same as pre-op Procedures performed: 1. Cystoscopy. 2. Transurethral resection of bladder tumors approximately 3 cm. 3. Right ureteroscopy. 4. Placement of 6 [place] variable length right ureteral stent. Anesthesia: EWAA Primary Surgeon: Duy Gloria Complications: None Estimated blood loss (mL): 10 Findings: 1. 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 2. No evidence of tumors inside the distal right ureter. 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 He also has a history of prostate cancer for which he underwent radiation therapy in 2014. Surveillance cystoscopy revealed that he had a recurrence of tumors along the same area of his original tumors i.e. around the right ureter. He now presents for TURBT and right ureteroscopy and possible stent placement. He has signed an informed consent after risks were explained. Detailed description of Procedure: The patient was brought to the operating room and placed on the operating room table in the supine position. SCDs were placed on the lower extremities and turned on and functioning during the entire case. Timeout was done by all parties in the room. We all agreed upon the patient's identification and the planned procedures for this patient. Genn. anesthesia was then administered. The patient was then repositioned into the modified dorsal lithotomy position. All pressure points were satisfactorily padded. Genitalia were sterilely prepped and draped in usual fashion. I started by passing a 26 [place] Olympus resectoscope per urethra and into the bladder. Panendoscopy revealed the previously noted tumors adjacent to the right ureter and lateral to it. I then used the standard bipolar loop electrode and uniformly and deeply resected these tumors. I was able to not have to resect through the ureteral orifice. The Elick was used to get the tumors out and these were sent for permanent sections. The area of resection was coagulated carefully. The ureter seemed to remain patent. By this time the prostate began bleeding due to prior radiation therapy. I had to coagulate several areas in the prostate. The resectoscope was then removed. I then passed a 22 [place] Olympus cystoscope into the bladder. A Glidewire with an open-ended ureteral catheter was passed through the scope and the right ureter was cannulated. The Glidewire was advanced up to the kidney and the catheter was removed as was the scope. I then passed a semirigid ureteroscope over the wire and into the distal right ureter. The wire was removed. I scoped up the ureter a few centimeters and there was no evidence of tumor ascension. The wire was passed back up the ureter and the scope was removed. Cystoscope was backloaded over the wire and passed in the bladder and a 6 [place] variable length stent was passed over the wire up into the kidney. The wire was removed and there were good curls in the kidney and in the bladder. No other tumors were seen within the bladder. The scope was then removed. I then passed a 20 [place] Sneed catheter in the bladder and 10 cc of fluid was placed in the balloon. The catheter was irrigated. The anesthetic was then reversed and the patient was transferred to a gurnew bedford bed and wheeled to PACU in stable condition. Urinary Catheter Management Urinary Catheter Management Urethral: Cath placed during this visit: no
[2025-07-18] MEDS: HYOSCYAMINE SULFATE 0.125 MG TAB.SUBL SL (13:24)
== END 2025-07-18 14:45 | disposition home or self-care (01) ==
LOC: SURGOUT 09:32
PROVIDERS: PCP Family Medicine; Visit Provider Urology
PROC: (CPT 52234; principal; 2025-07-18 10:45)
DX: C67.9 Malignant neoplasm of bladder, unspecified (principal); N32.9 Bladder disorder, unspecified; Z85.51 Personal history of malignant neoplasm of bladder; Z85.46 Personal history of malignant neoplasm of prostate; I25.2 Old myocardial infarction; I10 Essential (primary) hypertension; Z95.0 Presence of cardiac pacemaker; Z87.891 Personal history of nicotine dependence; Z90.49 Acquired absence of other specified parts of digestive tract; R06.09 Other forms of dyspnea; E78.5 Hyperlipidemia, unspecified; I25.10 Atherosclerotic heart disease of native coronary artery without angina pectoris; Z95.5 Presence of coronary angioplasty implant and graft
CPT/HCPCS: 52234; 52332; 52351; 36415; 76000; 88307; 88341; 88342; 88360; J0131; J0690; J1100; J2371; J2405; J2704; J3010

== ENCOUNTER 2025-07-31 13:31 | Outpatient (OUT) | payer MEDICARE, OTHER, SELFPAY ==
--- OUTSIDE RECORDS SUMMARY | 2025-07-19 19:25 | XMS_ITS | Continuity of Care Document ---
Author Organization [facility] Address [address] [place] [address] Phone Care Team Providers Care Medical Transcription Editor Name Role Phone Duy Gloria MD Attending Provider Nirmal Johansen MD Primary Care Provider [phone] Ana Khoury MD Other Provider [phone] Christine Carcamo MD Attending Provider Care Teams Patient Care Team Team Status: Active Member Role/Relationship Status Dates Nirmal Johansen MD Primary Care Provider Active Visit Care Team Team Status: Inactive Member Role/Relationship Status Dates Duy Gloria MD Attending Provider Active St art: July 18, 2025 End: July 18, 2025 Visit Care Team Team Status: Active Member Role/Relationship Status Dates Nirmal Johansen MD Primary Care Provider Active Start: July 19, 2025 Ana Khoury MDOther ProviderActiveStart: July 19, 2025 Christine Carcamo MDAttending ProviderActiveStart: July 19, 2025 Chief Complaint and Reason for Visit Chief Complaint Admit Date Unknown July 18, 2025 1 2:53pm 2nd Degree Av Block July 19, 2025 1 2:53pm Allergies, Adverse Reactions, Alerts Allergen Type Severity Reaction Last Updated Verified Status latex Allergy Unknown Unknown Reaction April 122020 11:29am No Active sulfamethoxazole Allergy Unknown Unknown Reaction Au delilah 2020 11:29am No Active tetracycline Allergy Unknown April 30, 2021 11:29amYesActiveTetracyclinesAllergyUnknownUnknown Reaction February 14, 2021 2:17pmYesActivetrimethoprimAllergyUnknownUnknown ReactionFebruary 14, 2021 2:17pmYesActive Social History Smoking Status Status Start Date End Date Date of Observa tion Ex-smoker (finding) September 12, 2003Jun2020 3:16pm Observation Status Observation Response Date of Response Legal Sex Male (finding) Sex Assigned At [facility] 1939 Problems Active Problems Problem Diagnosis/Recorded Date Onset Date Stat us Symptomatic bradycardia February 14, 2021 2:52pm Unknown Active BPH (benign prostatic hyperplasia) February 14, 2021 2:54 pm Unknown Active EtOH dependence February 14, 2021 3:50pm Unknown Act shai CAD (coronary artery disease) February 14, 2021 2:52pm Un known Active Second degree AV block, Mobitz type II February 15, 2021 8:40am Unknown Active Hyperlipidemia February 14, 2021 2:53pm Unknown Acti ve Hypertension February 14, 2021 2:53pm Unknown Active Obesity February 14, 2021 2:53pm Unknown Active Medications Medication Status Dose Units Route Directions Qty Days Refills S tart Date Stop Date End Date Reason(s) Instructions Adherence Carvedilol 25 mg tablet Active 25 MG PO Twice da martha February 13, 2021 11:00pmUnknownAmitriptyline 50 mg MqwnxrMaltzk79ZIXKQgdej daily February 13, 2021 11:00pmUnknownTamsulosin 0.4 mg capsuleActive0.4MGPOTwice daily February 13, 2021 11:00pmUnknownAspirin 81 mg Tablet,WwqredzwRmvjpt23GOMPBcztuFolc 2020 11:00pmUnknownFinasteride 5 mg qirzspWahksb2KPINQelazMxgj 2020 11:00pmUnknownRosuvastatin 10 mg fsvkmtCarmjr08FDTDBspuyYddt 2020 11:00pm UnknownPsyllium Husk (Metamucil) 3.4 gram/5.4 gram MtoxepWmalix3DYGBGODcfbcKwgn 2020 11:00pmUnknownFexofenadine 180 mg ZvpayhDhcvhe249ZBOSNryicNmeo 2020 11:00pmUnknownAmlodipine 5 mg GecgtnEzcuwd6YPFDPdcng208679Jdvp 8th, 2021 11:00pmUnknownClindamycin Hcl 300 mg uwfgdjcHvduko011NNCQPwdgi times iackw2515 February 17, 2021 11:00pmUnknownAcetaminophen 325 mg MtrznnXrcbtp430QQEYJ2L as needed for Mild Fnix79FbfgFebruary 17, 2021 11:00pmUnknownCyanocobalamin (Vitamin B-12) 1,000 mcg SnwzntRlzcfp0678WLBDXCqfso munrrwx985Mnpa 8th, 2021 11:00pmUnknown Immunizations Immunization Event Date Not Given Reason Dose Number Hard Tile Setter Apprentice Lot Number Reason(s) Given Vaccine Information Statement (VIS) Detail Administration Location COVID-19 mRNA-1273 (Moderna) October 08, 2020 COVID-19 mRNA-1273 (Moderna)November 05, 2020 Medical Equipment Device Date Implanted Device Details Endocardial pacing lead February 17, 2021 MURRAY: ()[id number] Issuing Agency: [facility] Device Id: [id number] Expiration Date: 2023-05-12 Serial Number: [id number] pacing leadJune 2020UDI: ()[id number] Issuing Agency: [facility] Device Id: [id number] Expiration Date: 2024-01-10 Serial Number: [id number]-gshjqza implantable pacemaker, rate-responsiveJune 2020UDI: ()[id number] Issuing Agency: [facility] Device Id: [id number] Expiration Date: 2022-08-11 Serial Number: [id number] Advance Directives Advance Directive Response Recorded Date/ Time Advance Directives No February 14 12:07pm Insurance Providers Guarantor Benjamín Hayden Address [facility] [address] [facility] [address]Nmnqjxb Info.Home Phone: Payer Group Member ID Coverage Type Subscriber Relationship to Subscriber Effective Date Expiration Date MMO Retired Id: [id number]: [id number] [address] [facility] [address] Home Phone: Email: [email or web address] Hemantkennedy Mcaid [id number]: [id number] [address] [facility] [address] Home Phone: Email: [email or web address] Encounter Location(s) Arrival/Admit Date Discharge/Departure Date Discharge/Departure Disposition Provider(s) Departed Referred -[facility] July 18, 2025 12:53pm July 18, 2025 12:54pm Discharged to home care or self care (routine discharge) Duy Gloria MD Non-patient / [facility]-visit -[facility] July 19, 2025 12:53pm Luke Carcamo
--- OUTSIDE RECORDS SUMMARY | 2025-07-25 23:59 | XMS_ITS | Continuity of Care Document ---
Author Organization [facility] Address [address] [place] [address] Care Team Providers Care Plumber Supervisor Name Role Phone LAURITA SANTIAGO A Primary Care Physician Unavailab le Encounter FT_AMBFIN [id number] Date(s): 07/25/25 - 07/25/25 [facility] [address] [place] [address]- [place] Discharge Disposition: Home (Routine DC) Attending Physician: Duy LEMA MD Encounter Type: Clinic Allergies, Adverse Reactions, Alerts SubstanceCriticalitySeverityReactionReaction SeverityStatusLatexBlistersActive sulfa drugsUnknown ReactionActivetetracyclinesUnknown ReactionActive Treatment Plan Future Appointments Appointment Date:07/31/2025 09:00:00 AM Scheduled Provider:Duy LEMA MD Location:[facility] Appointment Type:URO Office Visit Immunizations Given and Recorded VaccineDateStatusRefusal Reasoninfluenza virus vaccine, cevznkxzaea22/5/24 Recordedinfluenza virus vaccine, qiiflcxcwcy43/31/23Recordedinfluenza virus vaccine, tjexwuruwcg28/28/22Recordedinfluenza virus vaccine, brkwcvogdvw77/24/21 Recordedinfluenza virus vaccine, jcxywqbsvxe15/12/20Recordedinfluenza virus vaccine, hjrwlkzgeeg02/2020Recordedinfluenza virus vaccine, inactivated05/13/20 Recordedinfluenza virus vaccine, dtrgajpvgkw57/10/19Recordedinfluenza virus vaccine, uubqslixktv81/4/18Recordedinfluenza virus vaccine, qtfuxshrich24/8/18 Recordedinfluenza virus vaccine, enbvcplhxwj15/2/17Recordedinfluenza virus vaccine, wforbcxpugn22/22/16Recordedinfluenza virus vaccine, nzyehxetzsj13/17/15 Recordedinfluenza virus vaccine, /19/11LplojywcVLMG-MeT-0 (COVID- 19) mRNAMUL.ORD!p9930127/26/22Recordedpneumococcal 23-valent twgjewq95/28/22 DhpcpesxHURL-FvL-6 (COVID-19) mRNA-1273 sidpegl26/27/56PkxujdrpRFUP-QdS-9 (COVID-19) mRNA-1273 vaccine11/05/2006TegscaksVCYO-TsL-9 (COVID-19) mRNA-1273 vaccine10/16/2081QoauhqqeUXZI-HwI-1 (COVID-19) mRNA-1273 vaccine10/08/20Recorded SARS-CoV-2 (COVID-19) mRNA-1273 vaccine10/05/20Recordedpneumococcal 13-valent hpmwhhy32/22/16Recorded Medications amitriptyline 25 mg Tab 25 mg = 1 tab(s) Start Date: 04/20/22 Status: Ordered Medication Dispense Status: Completed Total Allowed Fills: 1 Fills Dispensed: 0 amLODIPine 5 mg Tab 5 mg = 1 tab(s), Oral, Daily, # 30 tab(s), Refills(s) 0 Start Date: 03/11/21 Status: Ordered Medication Dispense Status: Completed Quantity: 30.0 Unit: tab(s) Total Allowed Fills: 1 Fills Dispensed: 0 aspirin 81 mg oral capsule 81 mg = 1 cap(s), Oral, Daily Start Date: 04/20/22 Status: Ordered Medication Dispense Status: Completed Total Allowed Fills: 1 Fills Dispensed: 0 carvedilol 25 mg Tab 25 mg = 1 tab(s), Oral, BID Start Date: 06/20/19 Status: Ordered Medication Dispense Status: Completed Total Allowed Fills: 1 Fills Dispensed: 0 finasteride 5 mg Tab 5 mg = 1 tab(s), Oral, Daily, # 90 tab(s), Refills(s) 3, Pharmacy: [facility] (Now [facility]), 180, cm, 04/20/22 8:48:00 EDT, Height/Length Dosing, 104.9, kg, 04/20/22 8:48:00 EDT, Weight Dosing Start Date: 04/20/22 Status: Ordered Medication Dispense Status: Completed Quantity: 90.0 Unit: tab(s) Total Allowed Fills: 4 Fills Dispensed: 0 tamsulosin 0.4 mg Cap 0.4 mg = 1 cap(s), Oral, BID, # 180 cap(s), Refills(s) 3, Pharmacy: [facility] (Now [facility]), 180, cm, 04/20/22 8:48:00 EDT, Height/Length Dosing, 104.9, kg, 04/20/22 8:48:00 EDT, Weight Dosing Start Date: 04/20/22 Status: Ordered Medication Dispense Status: Completed Quantity: 180.0 Unit: cap(s) Total Allowed Fills: 4 Fills Dispensed: 0 Problem List ConditionConfirmationCourseEffective DatesStatusHealth StatusInformantBPH with obstruction/lower urinary tract symptomsConfirmedActiveEnlarged prostate with urinary obstructionConfirmedActiveBMI 31.0-31.9,adultConfirmedActive AnticoagulatedConfirmedActiveDysuriaConfirmedActivePersonal history of bladder cancerConfirmedActivePersonal history of prostate cancerConfirmedActiveHx of myocardial infarctionConfirmedActiveHypertensionConfirmedActiveLow energy ConfirmedActiveLesion of bladderConfirmedActiveMicroscopic hematuriaConfirmed ActiveNocturiaConfirmedActiveWeak urinary streamConfirmedActiveElevated PSA ConfirmedActiveUrge incontinenceConfirmedActiveUrgency of urinationConfirmed Active Procedures ProcedureDateRelated DiagnosisBody SiteStatusCysto, TURBT, R URS, R ureteral stent inqlcvfqt01/6/82KlpvpvmmdGpyzsnqqzw25/15/25CompletedFlexible cystoscopy 06/22/2334BrkltxpofXprsamjbgk17/6/21CompletedCardiac pacemaker02/17/21Completed Aujbwvflwa26/6/78ZtekhewgdSulsnpwlkk45/9/85BnukvnyrdBzcnvdbvhx047/16/18Completed Transrectal biopsy of prostate using ultrasound (US) guidance03/04/15Completed Cystoscopy and transurethral resection of bladder yqzzei22/6/12Completed AngioplastyCompletedColonoscopyCompletedExternal beam radiotherapyCompleted , 01/26/2013, 05/01/2013, 08/01/2013, 02/05/2014, 04/23/2014, 08/06/2014, 07/08/2016, 06/21/2017, 06/27/2018 Social History Social History TypeResponseSmoking StatusFormer smoker, quit more than 30 days ago;Never; Type: Cigarettes entered on: 06/26/25Birth SexMaleSex RepresentationMale (finding) Patient Care team information Care Team Personnel Name: LAURITA SANTIAGO MD Position: FT Physician Member Role: Primary Care Physician Address: [address] [place] [address] Care Team Related Persons Name: SANDER CANDELARIO Name: SANDER CANDELARIO Name: SANDER CANDELARIO Insurance Providers Guarantor name: CECILY CANDELARIO Health Plan Information #: 1 Payer: MEDICARE Payer Identifier: [id number] Member Number: [id number] Group Number: [id number] Subscriber Identifier: [id number] Relationship to Subscriber: self Coverage Type: MEDICARE Coverage Verification Date: 25 Telecom: [phone] Address: [facility] [address] [place] [address] Health Plan Information #: 2 Payer: [employer] Payer Identifier: [id number] Member Number: [id number] Group Number: [id number] Subscriber Identifier: [id number] Relationship to Subscriber: self Coverage Type: PRIVATE HEALTH INSURANCE Coverage Verification Date: 25 Telecom: H[place] Address: [facility] [address] [place] [address]
== END 2025-07-31 13:32 | disposition home or self-care (01) ==
LOC: PST 13:32
PROVIDERS: PCP Family Medicine; Visit Provider Urology
DX: Z01.818 Encounter for other preprocedural examination (principal); D49.4 Neoplasm of unspecified behavior of bladder

== ENCOUNTER 2025-08-01 09:12 | Day surgery (SDC) | payer MEDICARE, OTHER, SELFPAY ==
[2025-08-01] VITALS (11 sets, daily range): BP systolic 123–163; BP diastolic 69–96; PULSE 57–69; TEMP 36.1–36.8; O2SAT 93–96
--- OUTSIDE RECORDS SUMMARY | 2025-08-01 09:17 | XMS_ITS ---
Author Organization [facility] Address [address] [place], [place] [id number] Care Team Providers Care Seismograph Chief Name Role Phone Nirmal Johansen Primary Care Provider Active Problems ProblemNoted DateDiagnosed DateMonoclonal /11/2015Fever, unspecified fever cause05/16/2015 Overview (06/12/2015): ICD-10 Go-Live Malignant neoplasm of tlbkewex91/21/2015Other and unspecified hyperlipidemia 2004Essential hypertension, nfvgke6402/11/2004Hypertrophy of prostate with urinary obstruction and other lower urinary tract symptoms (LUTS)2004 ABDOMINAL PAIN UNSPEC SITE: left flank2004Orchalgia - left2004 Current Treatment and Therapy Plans No current plan information found. Past Treatment and Therapy Plans
--- OUTSIDE RECORDS SUMMARY | 2025-08-01 09:17 | XMS_ITS | Clinical Summary ---
Author Organization [facility] Address [address] [place] [address] Phone Care Team Providers Care Associate Spa Director Name Role Phone Nirmal Johansen MD Primary Care Provider [phone] Allergies Active AllergyReactionsCriticalityNoted WziqJoqrigljVcffbBwvpsWtdwia06/14/2023 Sulfa (Sulfonamide Antibiotics)TrxcTcz8207/25/20230702RdkbuahbkkvkFngeYxy25/13/2023 Medications MedicationSigDispense QuantityRefillsLast FilledStart DateEnd DateStatus amitriptyline [...] daily.Active Active Problems ProblemNoted DateDiagnosed DateAV node ghdzopyudrb52/09/2025Former smoker 01/18/2025MI 30.0-30.9,adult03/06/2024oronary artery disease involving [place] coronary artery of [place] heart without angina nfxurmbk82/13/2023HLD (hyperlipidemia)07/25/20236708Hcvpssxllnrr78/13/6085Liaepdnjw73/13/2023 Resolved Problems ProblemNoted DateDiagnosed DateResolved DateChest pain Shortness of yviihq95/bnormal EKG1Heart block AV second aeuouh85/05/2025 Encounters DateTypeDepartmentCare LpynRdomgjjqxtv14/16/2025[place] [address] [place] [address] Brletic, Shasta B, QUALITY ENGINEER pocfrom Last 3 Months Immunizations ImmunizationAdministration DatesNext DueInfluenza, Seasonal, Quadrivalent, Qbgiywyydq71/31/2023,08/05/2021Influenza, Jorducsurwz03/01/2020Influenza, trivalent, iowyyrfroa72/05/2024Moderna SARS-CoV-2 Vxewprpefli76/24/2021, 1Pneumococcal conjugate vaccine, 13-valent (PREVNAR 13)08/03/2016 Pneumococcal polysaccharide vaccine, 23-valent, age 2 years and older (PNEUMOVAX 23)07/09/2022 Family History Medical HistoryRelationNameCommentsThroat cancerBrotherLung cancerFatherHeart diseaseMotherRelationNameStatusCommentsBrotherFatherMother Social History Tobacco UseTypesPacks/DayYears UsedDateSmoking Tobacco: FormerCigarettes Smokeless Tobacco: NeverAlcohol UseStandard Drinks/LvzgNrznwbiyPok91 (1 standard drink = 0.6 oz pure alcohol)Sex and Gender InformationValueDate RecordedSex Assigned at YlurhWttl06/14/2023 2:27 PM ESTLegal PpwKpze32/26/2022 5:06 AM EST Gender SgzdzgbeLcew18/14/2023 2:27 PM ESTSexual OrientationNot on file Last Filed Vital Signs Vital SignReadingTime TakenCommentsBlood Unfqnavc436/6005/05/2025 10:20 AM EDT Evnua2683/09/2025 10:20 AM EDTTemperature--Respiratory Rate--Oxygen Saturation-- Inhaled Oxygen Concentration--Ixyxfj835 kg (222 lb)01/18/2025 10:20 AM EDTHeight 180.3 cm (5' 11 )01/18/2025 10:20 AM EDTBody Mass Index30.9601/18/2025 10:20 AM EDT Plan of Treatment DateTypeDepartmentCare Team (Latest Contact Info)Cikuyaabgzh64/15/2026 10:40 AM EDTOffice Visit [facility] [address] [facility] [address] [place] [address] Ana Khoury MD [address] [facility] [address] [place] [address] Health MaintenanceDue DateLast DoneCommentsLipid Panel1938Medicare Annual Wellness Visit (AWV)1938DTaP/Tdap/Td Vaccines (1 - Tdap)02/12/1960Zoster Vaccines (1 of 2)02/12/1988RSV High Risk: (Elderly (60+) or Population) (1 - 1-dose 75+ series)2013Influenza Vaccine (#1)511/01/2024, 07/12/2023, 07/09/2022, Additional history existsCOVID-19 Vaccine ( season)512/02/2023, 08/07/2022, 07/08/2021, Additional history exists Pneumococcal RxucvmlIzrcqvemg99/28/2022, 08/03/2016HIB VaccinesAged OutNo longer eligible based on [...] patient's age to complete this topic Insurance Care Teams Team MemberRelationshipSpecialtyStart DateEnd Date Nirmla Johansen MD [address] [place] [address] [facility]09/12/19
--- OUTSIDE RECORDS SUMMARY | 2025-08-01 09:17 | XMS_ITS | Clinical Summary ---
Author Organization [facility] Address [address] [place] [address] Care Team Providers Care Roofer Name Role Phone Unavailable Primary Care Provider Unavailabl e Social History Tobacco UseTypesPacks/DayYears UsedDateSmoking Tobacco: Never AssessedSex and Gender InformationValueDate RecordedSex Assigned at BirthNot on fileLegal Sex Male11/24/2022 7:02 PM EDTGender IdentityNot on fileSexual OrientationNot on file Last Filed Vital Signs Vital SignReadingTime TakenCommentsBlood Pklplmla964/8212 12:00 PM EST Pulse--Temperature--Respiratory Rate--Oxygen Saturation--Inhaled Oxygen Concentration--Gdnbbs66.8 kg (220 lb)01/11/2020 12:00 PM PXLTlnovt674.8 cm (5' 10 )01/11/2020 12:00 PM EDTBody Mass Index31.57001/11/2020 12:00 PM EDT Plan of Treatment Not on file Insurance
--- OUTSIDE RECORDS SUMMARY | 2025-08-01 09:17 | XMS_ITS | Clinical Summary ---
Author Organization [facility] Address [address] [place], [place] [address] Care Team Providers Care Drying Room Supervisor Name Role Phone Nirmal Johansen Primary Care Provider [phone] Allergies Active AllergyReactionsCriticalityNoted DateCommentsLatex, Natural RubberUnknown 04/01/2015Sulfa (Sulfonamide Antibiotics)02/11/20040104Yniynoyeqeip27/01/2004 Medications MedicationSigDispense QuantityRefillsLast FilledStart DateEnd DateStatus finasteride [...] once daily.07/08/2016Active Active Problems ProblemNoted DateDiagnosed DateMonoclonal toocodbsdl93/11/2015Fever, unspecified fever cause05/16/2015 Overview (06/12/2015): ICD-10 Go-Live Malignant neoplasm of zeczytoh08/21/2015Other and unspecified hyperlipidemia 2004Essential hypertension, bpwxge7402/11/2004Hypertrophy of prostate with urinary obstruction and other [...] InformationValueDate RecordedSex Assigned at BirthNot on fileLegal XarHecl00/02/2012 10:03 AM ESTGender IdentityNot on fileSexual OrientationNot on fileOccupationIndustryJob Start DateJob End DateRetired managerNot on fileNot on fileNot on file Last Filed Vital Signs Vital SignReadingTime TakenCommentsBlood Fwztnfch783/7005 8:10 AM EDT Snsdc1516 1:59 PM JFZQtekjjgynpr42.9 ??C (98.4 ??F)01/13/2016 1:59 PM EDTRespiratory Wyzr931501/13/2016 1:59 PM EDTOxygen Saturation--Inhaled Oxygen Concentration--Jedxoy810 kg (238 lb)01/18/2017 8:10 AM OMASfnbhp523.1 cm (5' 10.51 )01/13/2016 1:59 PM EDTBody Mass Index33.66001/13/2016 1:59 PM EDT Plan of Treatment Health MaintenanceDue DateLast DoneCommentsAnxiety Absjcwhwk42/02/1956Depression Awemacpmy00/02/1956DTaP,Tdap,Td Vaccine (1 - Tdap)1957Pneumococcal Vaccine: 50+ (1 of 1 - PCV)02/12/1988Shingrix Vaccine (1 of 2)02/12/1988RSV Vaccine (1 - 1-dose 75+ series)2013Diabetes Uelvbbphs90, 2004Advance Directive Jkncwqdten06/01/2025Covid-19 Vaccine ( season)2025Influenza Vaccine (#1) Procedures Procedure NamePriorityDate/TimeAssociated DiagnosisCommentsBASIC METABOLIC PANEL Jtltezb4204/03/2015 4:05 PM EDT Malignant neoplasm of prostate (HCC) from Last 3 Months or Most Recently Relevant to Health Maintenance Results * (ABNORMAL) BASIC METABOLIC PNL (04/03/2015 4:05 PM EDT)ComponentValueRef Range Test MethodAnalysis TimePerformed AtPathologist CtnyglhjbNsyuocz671(H)65 - 100 mg/dL04/04/2015 3:09 PM [facility] LXJYYIIMQGSFL7589 - 25 mg/dL 04/04/2015 3:09 PM [facility] LABORATORYCreatinine1.060.70 - 1.40 mg/dL04/04/2015 3:09 PM [facility] BWQPWHKSRLHcwlfy133685 - 146 mmol/L04/04/2015 3:09 PM [facility] LABORATORYPotassium4.0 3.5 - 5.0 mmol/L04/04/2015 3:09 PM [facility] LABORATORYChloride 83927 - 110 mmol/L04/04/2015 3:09 PM [facility] SKRVOKNLMWTI879 23 - 32 mmol/L04/04/2015 3:09 PM [facility] LABORATORYAnion Gap 120 - 15 mmol/L04/04/2015 3:09 PM [facility] LABORATORYCalcium 8.78.5 - 10.5 mg/dL04/04/2015 3:09 PM [facility] LABORATORYeGFR- >6007 3:09 PM [facility] LABORATORYeGFR- All Other Races>60.04/04/2015 3:09 PM [facility] Comment: eGFR (Estimated GFR) Units [...] Cornell Garg MDLABORATORYFinal ResultPerforming OrganizationAddressCity/State/ZIP CodePhone Number [facility] [address] [place] [place] [address] from Last 3 Months or Most Recently Relevant to Health Maintenance Insurance Care Teams Team MemberRelationshipSpecialtyStart DateEnd Nirmal Johansen NPI: [id number] [place] [address] [phone] PCP - [facility]Fat[facility]pleton [facility]04/29/15
--- OUTSIDE RECORDS SUMMARY | 2025-08-01 09:17 | XMS_ITS | Clinical Summary ---
Author Organization [facility] Address [id number] [address] [place] [address] Care Team Providers Care Diagrammer And Seamer Name Role Phone Nirmal Johansen MD Primary Care Provider Allergies Active AllergyReactionsCriticalityNoted DateCommentsLatex, Natural RubberRashLow 04/01/2015Sulfa (Sulfonamide Antibiotics)07/04/20174603PhrcuaxqrjocYnbxFyx90/23/2017 Medications MedicationSigDispense QuantityRefillsLast FilledStart DateEnd DateStatus amitriptyline [...] day. 06/17/2017Active aspirin 81 mg Indications:Atherosclerosis of oneida coronary artery of oneida heart without angina pectorisTake 1 tablet (81 mg total) by mouth daily. 30 tablet 11Active gabapentin (NEURONTIN) 300 mg capsule Take 300 mg by mouth 3 (three) times a day.Active traMADoL (ULTRAM) 50 mg tablet Take 50 mg by mouth every 6 (six) hours as needed for pain.Active Active Problems ProblemNoted DateDiagnosed DateNon-ST elevation HI (NSTEMI) ([facility]) 200607/15/2020Mitral /24/2017HyperlipidemiaAtherosclerotic heart disease of oneida coronary artery without angina pectorisPresence of coronary angioplasty implant and graftObesitySOB (shortness of breath) Family History Medical HistoryRelationNameCommentsCancerFatherHeart diseaseMotherRelationName StatusCommentsFatherDeceasedMotherDeceased Social History Tobacco UseTypesPacks/DayYears UsedDateSmoking Tobacco: FormerSmokeless Tobacco: Never Tobacco Cessation:Counseling Given: No Alcohol UseStandard Drinks/WeekCommentsYes0 (1 standard drink = 0.6 oz pure alcohol)pt states couple drinks per dayChildcareAnswerDate RecordedChildcare Aqfronp3902/19/2019EmploymentAnswerDate KmzrbeahAhomzmamblFtrotzp29/10/2019Purpose - LifeAnswerDate RecordedPurpose and direction in ittdLanihih30/10/2021ex and Gender InformationValueDate RecordedSex Assigned at DrmgpDdyp83/24/2024 6:12 PM EDTLegal FzuWfco6904/15/2015 1:59 PM EDTGender BejemjzaAiso90/24/2024 6:12 PM EDT Sexual WgbxvxcspxqVndebwdz83/24/2024 6:12 PM EDT Last Filed Vital Signs Vital SignReadingTime TakenCommentsBlood Nrsjjfvn274/80109/14/2019 10:07 AM EST Hqblt529307/15/2020 10:07 AM JMQDicxcdtzcon97.5 ??C (97.7 ??F)01/23/2020 10:30 AM EDTRespiratory Vkmg3306 11:18 AM EDTOxygen Abntuyksrx04%01/23/2020 11:20 AM EDTInhaled Oxygen Concentration--Yizkcr326 kg (227 lb)07/15/2020 10:07 AM EST Miqhhm717.3 cm (5' 11 )07/15/2020 10:07 AM ESTBody Mass Index31.6607/15/2020 10:07 AM EST Plan of Treatment Health MaintenanceDue DateLast DoneCommentsDepression Ybchgchwf92/02/1950Tobacco Gcakupzmc13/02/1950DTaP,Tdap and Td Vaccines (1 - Tdap)1957Zoster (Shingles) Vaccine (1 of 2)02/12/1988Fall Risk Qfoabrmzn22/02/2003RSV ( or age 60+ yrs) (1 - 1-dose 75+ series)2013Influenza Wahsmrn2905/13/2025 06/21/2019, 08/15/2018, 06/19/2018, Additional history exists Medical Devices Not on file Insurance Care Teams Team MemberRelationshipSpecialtyStart DateEnd Date Nirmal Johansen MD [address] [place] [address] [facility]06/06/17
[2025-08-01] MEDS: CEFAZOLIN SODIUM 2 GM/50 ML D5W PREMIX IV (10:33)
--- NOTE | 2025-08-01 11:53 | P.URON_ITS ---
Urology Surgery Operative Note Operative Note Procedure Date: 08/01/25 Time Out Performed: yes Pre-op Diagnosis: History of bladder cancer; recent recurrence with lamina propria invasion. Post-op Diagnosis: same as pre-op Procedures performed: 1. Cystoscopy. 2. Cold cup bladder biopsies multiple. 3. Fulguration of bladder with Bugbee electrode. 4. Fulguration of bleeding prostate. Anesthesia: GURMEET Primary Surgeon: Duy Gloria Complications: None Estimated blood loss (mL): 10 Specimens: Deep muscle biopsies of prior resection bed. 12 biopsies taken Drains: 20 [place] Sneed catheter Indications for Procedures: This gentleman had a TURBT just last week. 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 Pathology folks suggested that they did not see any muscle in the specimen. He now presents for reresection of his resection bed. He has signed an informed consent after risks were explained. Detailed description of Procedure: The patient was brought to the operating room and placed on the operating room table in the supine position. SCDs were placed on the lower extremities and turned on and functioning during the entire case. Timeout was done by all parties in the room. We all agreed upon the patient's identification and the planned procedures for this patient. Genn. anesthesia was then administered. The patient was then repositioned into the modified dorsal lithotomy position. All pressure points were satisfactorily padded. Genitalia were sterilely prepped and draped in usual fashion. I started by passing a 22 Citizen [place] Olympus cystoscope per urethra and into the bladder. The prior resection bed had necrotic debris overlying it. This was brushed away with a cold cup biopsy forceps. I then began taking deep biopsies visibly into muscle from the prior resection bed. I made sure to stay distal and lateral to the ureteral orifice. 12 biopsies were submitted in formalin. I then used the Bugbee electrode and coagulated all of the biopsy sites within the resection bed. The Elick evacuator was used to get any other debris out of the bladder. The prostate began to ooze a little bit so the Bugbee was used to coagulate this. Upon completion, there was no evidence of bleeding and there were no tumor seen within the bladder. The scope was then removed. I then placed a 20 [place] Sneed catheter in the bladder. 10 cc of fluid was placed in the balloon. The anesthetic was then reversed. He was then transferred to a gurney bed and wheeled to PACU in stable condition. Urinary Catheter Management Urinary Catheter Management Urethral: Cath placed during this visit: no
== END 2025-08-01 13:47 | disposition home or self-care (01) ==
LOC: SURGOUT 09:13
PROVIDERS: PCP Family Medicine; Visit Provider Urology
PROC: (CPT 52204; principal; 2025-08-01 10:20)
DX: C67.9 Malignant neoplasm of bladder, unspecified (principal); Z85.46 Personal history of malignant neoplasm of prostate; N40.1 Benign prostatic hyperplasia with lower urinary tract symptoms; Z90.49 Acquired absence of other specified parts of digestive tract; Z87.891 Personal history of nicotine dependence; E78.5 Hyperlipidemia, unspecified; I10 Essential (primary) hypertension; I25.10 Atherosclerotic heart disease of native coronary artery without angina pectoris; I25.2 Old myocardial infarction; Z95.5 Presence of coronary angioplasty implant and graft; Z95.0 Presence of cardiac pacemaker; M19.90 Unspecified osteoarthritis, unspecified site
CPT/HCPCS: 52204; 52647; 88307; 88341; 88342; J0131; J0690; J1100; J2371; J2405; J2704; J3010